=== PATIENT | female | born 1995 ===

== ENCOUNTER 2017-08-09 13:18 | Emergency (ER) | payer BC, OTHER ==
[2017-08-09 13:27] VITALS: BP 120/77; PULSE 88; RESP 16; TEMP 98; O2SAT 99
[2017-08-09] MEDS ORDERED: Sodium Chloride 0.9% 500 ML IV ONE (13:41)
--- NOTE | 2017-08-09 13:46 | ED PDOC ---
Syncope/Near Syncope/Dizziness Additional Complaint(s): 22yo F with PMHx SHAY c/o dizziness. 9AM today, pt exited hot shower and cool air hit her face, pt felt light headed and experienced LOC. Pt caught by boyfriend's mother, no trauma, a/w post ictal state. h/o of similar episodes x9 years with 3 similar episodes in past 1 year. Does occur other times if she is standing still for prolonged period of time. Denies fever, chills, n/v, vision change, focal weakness, slurring words. Not on medications. Denies PMHx/FHx cardiac disease or seizures. Denies smoking, etOH, drug use PCP Dr. Peters <Muriel Hopper - Last Filed: 08/09/17 14:31> <Joan Chester - Last Filed: 08/09/17 14:41> Time Seen by Provider: 08/09/17 13:30 Chief Complaint (Nursing): Dizziness/Lightheaded Supervising Attending Note - Supervising Attending Note The Documented history was done by the: Physician Medical Claims Processor The documented physical exam was done by the: Physician Medical Claims Processor The documented procedures were done by the: Physician Medical Claims Processor - Attestation: I have personally seen and examined this patient.: Yes I have fully participated in the care of the patient.: Yes I have reviewed all pertinent clinical information: Yes <Joan Chester - Last Filed: 08/09/17 14:41> Past Medical History Reviewed: Historical Data, Nursing Documentation, Vital Signs Vital Signs: Last Vital Signs Temp 98.0 F 08/09/17 13:24 Pulse 88 08/09/17 13:24 Resp 16 08/09/17 13:24 BP 120/77 08/09/17 13:24 Pulse Ox 99 08/09/17 13:24 - Medical History PMH: Anemia - Family History Family History: States: No Known Family Hx - Social History Current smoker - smoking cessation education provided: No Alcohol: None Drugs: Denies <Muriel Hopper - Last Filed: 08/09/17 14:31> Vital Signs: Last Vital Signs Temp 98.0 F 08/09/17 13:24 Pulse 88 08/09/17 13:24 Resp 16 08/09/17 13:24 BP 120/77 08/09/17 13:24 Pulse Ox 99 08/09/17 14:33 <Joan Chester - Last Filed: 08/09/17 14:41> - Allergies Allergies/Adverse Reactions: Allergies Allergy/AdvReac Type Severity Reaction Status Date / Time No Known Allergies Allergy Verified 08/09/17 13:24 Review of Systems ROS Statement: Except As Marked, All Systems Reviewed And Found Negative Neurological: Positive for: Dizziness <Muriel - Last Filed: 08/09/17 14:31> Physical Exam - Reviewed Nursing Documentation Reviewed: Yes Vital Signs Reviewed: Yes - Physical Exam Appears: Positive for: Well, Non-toxic Head Exam: Positive for: ATRAUMATIC, NORMAL INSPECTION Skin: Positive for: Warm, Dry Eye Exam: Positive for: Normal appearance, EOMI, PERRL Neck: Positive for: Normal, Painless ROM, Supple Cardiovascular/Chest: Positive for: Regular Rate, Rhythm. Negative for: Murmur Respiratory: Positive for: Normal Breath Sounds. Negative for: Decreased Breath Sounds Gastrointestinal/Abdominal: Positive for: Normal Exam, Soft Back: Positive for: Normal Inspection. Negative for: L CVA Tenderness, R CVA Tenderness Extremity: Positive for: Normal ROM. Negative for: Tenderness Lymphatic: Positive for: Normal Exam, Adenopathy Neurologic/Psych: Positive for: Alert, process cheese cooker II-XII, Oriented, Gait (normal). Negative for: Motor/Sensory Deficits, Facial Droop <Muriel - Last Filed: 08/09/17 14:31> - Laboratory Results Result Diagrams: 08/09/17 13:59 08/09/17 13:59 - ECG O2 Sat by Pulse Oximetry: 99 <Muriel - Last Filed: 08/09/17 14:31> - Laboratory Results Result Diagrams: 08/09/17 13:59 08/09/17 13:59 <Joan Chester - Last Filed: 08/09/17 14:41> Medical Decision Making Medical Decision Makin DDx vasovagal episode, anemia, seizure CBC, BMP, Lactate IVF NS 500cc bolus x1 reassessment 1431 labs unremarkable pt feeling steady <Perfectog - Last Filed: 08/09/17 14:31> Disposition - Disposition Disposition: Routine/Home Disposition Time: 14:32 <Muriel - Last Filed: 08/09/17 14:31> - Patient ED Disposition Is Patient to be Admitted: No Doctor Will See Patient In The: Office - POA Present On Arrival: None <ChesterJoancaio Gauthier - Last Filed: 08/09/17 14:41> - Clinical Impression Clinical Impression: Vasovagal episode - Disposition Referrals: Selina Peters MD [Staff Provider] - Condition: STABLE Instructions: Vasovagal Response (DC) Forms: [facility] (Portuguese)
[2017-08-09 14:09] LABS: BASO % 0.4 % (0.0-2.0); EOS # 0.1 K/uL (0.0-0.7); EOS % 1.8 % (0.0-4.0); HEMOGLOBIN 13.5 g/dL (12.0-16.0); LYMPH # 2.2 K/uL (1.0-4.3); LYMPH % 26.9 % (20.0-40.0); MEAN CELL VOLUME 87.1 fl (81.0-99.0); MEAN CORPUSCULAR HGB CONC 35.6 g/dL (33.0-37.0); MONO # 0.6 K/uL (0.0-0.8); MONO % 7.2 % (0.0-10.0); NEUT # 5.1 K/uL (1.8-7.0); NEUT % 63.7 % (50.0-75.0); NRBC % 0.1 % (0.0-0.0); RBC 4.35 Mil/uL (3.80-5.20)
[2017-08-09 14:15] LABS: BLOOD UREA NITROGEN 13 mg/dl (7-17); CALCIUM 9.4 mg/dL (8.4-10.2); GFR AFRICAN-AMERICAN > 60; GFR NON-AFRICAN AMERICAN > 60
== END 2017-08-09 15:23 | disposition home or self-care (01) ==
LOC: H.ER 13:18
DX: R42 Dizziness and giddiness (principal)
CPT/HCPCS: 80048; 81025; 83605; 85025; 99284; J7040